=== PATIENT | female | born 1955 | race Caucasian/White ===

== ENCOUNTER 2017-07-14 10:18 | Emergency (ER) | payer OTHER ==
[~2017-07-14] VITALS: Ht 165.1 cm; Wt 67.0 kg
[~2017-07-14 10:18] MED LIST: ADVAIR HF1 IN; ADVAIR HFA IN; ARIMIDEX1 MG PO; BACTROBAN2 % EX; ESGIC-PLUS PO; LOPID600 MG PO; MUPIROCIN2 % EX; NAPROSYN500 MG OR; NASONEX50 MCG/AC NAB; OMEPRAZOLE20 MG PO; OS-CAL 500500 M1 PO; PRAVACHOL40 MG PO; PRILOSEC20 MG PO; ROPINIROLE HCL1 MG PO; ROPINIROLE1 MG PO; SIMVASTATIN80 MG PO; SINGULAIR PO; TET/DIP TOX1 ML IM; VASOTEC10 MG PO; WOMEN'S ONE PO; ZOFRAN ODT4 MG PO; [UNRECOGNIZED DRUG - OTHER] NAB
[2017-07-14 12:08] LABS: HEMOGLOBIN 12.7 g/dl (12.0-16.0); IMMATURE GRANULOCYTES 0.3 % (0.0-1.0); MEAN CELL VOLUME 89.2 fL CALC (80.0-100.0); MEAN CORPUSCULAR HGB 29.8 pG CALC (26.0-32.0); MEAN CORPUSCULAR HGB CONC 33.4 g/L CALC (32.0-36.0); NEUT# 9.38 thou/uL (2.00-7.15); RED BLOOD COUNT 4.26 mill/uL (4.20-5.60); RED CELL DISTRI WIDTH 13.1 % (11.5-15.5)
[2017-07-14 12:18] LABS: ALBUMIN 4.5 g/dL (3.2-5.0); ALKALINE PHOSPHATASE 109 u/l (38-126); AMYLASE 55 u/l (30-110); ANION GAP 17 (6-22 (CALC)); BUN 10 mg/dL (7-17); BUN/CREATININE RATIO 18 (12-20 (CALC)); CARBON DIOXIDE 28 mmol/l (22-30); CHLORIDE 99 mmol/l (95-108); CREATININE 0.6 mg/dL (0.5-1.0); GFR > 60 ML/MIN (>=60 (CALC)); GFR FOR AFR.AMER. > 60 ML/MIN (>=60 (CALC)); GLUCOSE 94 mg/dL (65-105); LIPASE 141 u/l (23-300); POTASSIUM 3.7 mmol/l (3.5-5.1); SGOT/AST 24 u/l (14-36); SGPT/ALT 33 u/l (9-52); SODIUM 141 mmol/l (137-146); TOTAL PROTEIN 7.3 g/dL (6.3-8.2)
[2017-07-14 12:38] LABS: URINE BILIRUBIN - DIPSTICK NEGATIVE (NEGATIVE); URINE BLOOD DIPSTICK NEGATIVE (NEGATIVE); URINE COLOR YELLOW; URINE GLUCOSE - DIPSTICK NEGATIVE (NEGATIVE); URINE KETONE NEGATIVE (NEGATIVE); URINE LEUK ESTERASE TRACE (NEGATIVE); URINE NITRITE - DIPSTICK NEGATIVE (Negative); URINE PROTEIN - DIPSTICK NEGATIVE (NEG-TRACE); URINE SPECIFIC GRAVITY <=1.005; URINE UROBILINOGEN - DIPSTICK 0.2 E.U./dL (0.2)
[2017-07-14 12:41] LABS: URINE CLARITY CLEAR
[2017-07-14] MEDS ORDERED: BACTRIM DS1 TAB PO (13:04)
[2017-07-14] MEDS ORDERED: METRONIDAZOL500 MG PO (13:04)
[2017-07-14 14:00] VITALS: BP 138/80
== END 2017-07-14 14:27 | disposition home or self-care (01) | DRG 392 ==
LOC: ED 10:18
PROVIDERS: Emergency Medicine
DX: K57.32 Diverticulitis of large intestine without perforation or abscess without bleeding (principal); R10.32 Left lower quadrant pain; R11.0 Nausea

== ENCOUNTER 2017-12-28 11:41 | Emergency (ER) | payer OTHER ==
[~2017-12-28] VITALS: Ht 165.1 cm; Wt 68.0 kg
[~2017-12-28 11:41] MED LIST changes: +BACTRIM DS1 TAB PO; +METRONIDAZOL500 MG PO
[2017-12-28] MEDS ORDERED: AUGMENTIN875TAB PO (12:14)
[2017-12-28] MEDS ORDERED: MEDDOSEPAK PO (12:14)
[2017-12-28] MEDS ORDERED: BENADRYL25 M1 PO (12:14)
[2017-12-28 12:20] VITALS: BP 132/81
== END 2017-12-28 12:20 | disposition home or self-care (01) | DRG 605 ==
LOC: ED 11:41
DX: S61.230A Puncture wound without foreign body of right index finger without damage to nail, initial encounter (principal); I10 Essential (primary) hypertension; J45.909 Unspecified asthma, uncomplicated; Z85.3 Personal history of malignant neoplasm of breast; X58.XXXA Exposure to other specified factors, initial encounter; Y93.H2 Activity, gardening and landscaping; Y92.007 Garden or yard of unspecified non-institutional (private) residence as the place of occurrence of the external cause

== ENCOUNTER 2018-06-21 12:32 | Emergency (ER) | payer OTHER ==
[~2018-06-21] VITALS: Ht 165.1 cm; Wt 67.0 kg
[~2018-06-21 12:32] MED LIST changes: +AUGMENTIN875TAB PO; +BENADRYL25 M1 PO; +MEDDOSEPAK PO
[2018-06-21 13:13] LABS: URINE BILIRUBIN - DIPSTICK NEGATIVE (NEGATIVE); URINE BLOOD DIPSTICK NEGATIVE (NEGATIVE); URINE COLOR YELLOW; URINE GLUCOSE - DIPSTICK NEGATIVE (NEGATIVE); URINE KETONE NEGATIVE (NEGATIVE); URINE LEUK ESTERASE NEGATIVE (NEGATIVE); URINE NITRITE - DIPSTICK NEGATIVE (Negative); URINE PH 5.5 (4.5-8.0); URINE PROTEIN - DIPSTICK NEGATIVE (NEG-TRACE); URINE SPECIFIC GRAVITY <=1.005; URINE UROBILINOGEN - DIPSTICK 0.2 E.U./dL (0.2)
[2018-06-21 13:15] LABS: URINE CLARITY CLEAR
[2018-06-21 13:24] LABS: HEMATOCRIT 39.7 % (37.0-47.0); HEMOGLOBIN 13.7 g/dl (12.0-16.0); IMMATURE GRANULOCYTES 0.1 % (0.0-5.0); MEAN CELL VOLUME 85.2 fL CALC (80.0-100.0); MEAN CORPUSCULAR HGB 29.4 pG CALC (26.0-32.0); MEAN CORPUSCULAR HGB CONC 34.5 g/L CALC (32.0-36.0); NEUT# 4.62 thou/uL (2.00-7.15); RED BLOOD COUNT 4.66 mill/uL (4.20-5.60); RED CELL DISTRI WIDTH 12.9 % (11.5-15.5)
[2018-06-21 13:36] LABS: ALBUMIN 4.6 g/dL (3.2-5.0); ALKALINE PHOSPHATASE 111 u/l (38-126); ANION GAP 17 (6-22 (CALC)); BILIRUBIN, TOTAL 0.7 mg/dL (0.0-1.4); BUN 8 mg/dL (8-23); BUN/CREATININE RATIO 16 (12-20 (CALC)); CARBON DIOXIDE 26 mmol/l (22-30); CHLORIDE 98 mmol/l (95-108); CREATININE 0.5 mg/dL (0.5-1.0); GFR > 60 ML/MIN (>=60 (CALC)); GFR FOR AFR.AMER. > 60 ML/MIN (>=60 (CALC)); LIPASE 385 u/l (23-300); POTASSIUM 4.2 mmol/l (3.5-5.1); SGOT/AST 33 u/l (9-36); SODIUM 136 mmol/l (137-146); TOTAL PROTEIN 7.4 g/dL (6.3-8.2)
[2018-06-21] MEDS ORDERED: PEPCID20 MG PO (16:08)
[2018-06-21 16:22] VITALS: BP 126/62
== END 2018-06-21 16:30 | disposition home or self-care (01) | DRG 392 ==
LOC: ED 12:32
DX: K52.9 Noninfective gastroenteritis and colitis, unspecified (principal); I10 Essential (primary) hypertension; J45.909 Unspecified asthma, uncomplicated

== ENCOUNTER 2019-07-18 18:24 | Inpatient (IN) | payer BC ==
[~2019-07-18] VITALS: Ht 165.1 cm; Wt 68.0 kg
[~2019-07-18 18:24] MED LIST changes: +PEPCID20 MG PO
--- NOTE | 2019-07-18 18:25 | NUR ---
PT VOMITED UPON ARRIVAL TO ER. PT STATES IT HAS BEEN HAPPENING ANYTIME SHE EATS X 1 WEEK. PT DENIES ABDOMINAL PAIN. PT STATES SHE FEELS DEPRESSED AND DOESN'T WANT TO EAT. PER PT'S THEY ARE THE PRIMARY CARETAKERS FOR HIS MOTHER WHICH IS DIFFICULT.
--- NOTE | 2019-07-18 18:40 | NUR ---
PT STATES SHE CANT SLEEP, SHE HAS BEEN TOSSING AND TURNING ALL NIGHT FOR LAST WEEK, WORRYING ABOUT HER MOTHER IN LAW. STATES DOESNT FEEL LIKE EATING. NO IDEAS OF HARMING SELF OR ANYONE ELSE.
[2019-07-18 19:52] LABS: HEMATOCRIT 36.6 % (37.0-47.0); HEMOGLOBIN 13.4 g/dl (12.0-16.0); IMMATURE GRANULOCYTES 0.3 % (0.0-5.0); MEAN CELL VOLUME 77.9 fL CALC (80.0-100.0); MEAN CORPUSCULAR HGB 28.5 pG CALC (26.0-32.0); MEAN CORPUSCULAR HGB CONC 36.6 g/L CALC (32.0-36.0); NEUT# 7.05 thou/uL (2.00-7.15); RED BLOOD COUNT 4.7 mill/uL (4.20-5.60); RED CELL DISTRI WIDTH 12.3 % (11.5-15.5)
[2019-07-18 20:42] LABS: ALBUMIN 4.9 g/dL (3.2-5.0); ALKALINE PHOSPHATASE 143 u/l (38-126); AMYLASE 54 u/l (30-110); BUN 5 mg/dL (8-23); BUN/CREATININE RATIO 12 (12-20 (CALC)); CARBON DIOXIDE 28 mmol/l (22-30); CREATININE 0.4 mg/dL (0.5-1.0); GFR > 60 ML/MIN (>=60 (CALC)); GFR FOR AFR.AMER. > 60 ML/MIN (>=60 (CALC)); LIPASE 252 u/l (23-300); POTASSIUM 3.5 mmol/l (3.5-5.1); TOTAL PROTEIN 7.9 g/dL (6.3-8.2)
[2019-07-18 20:46] LABS: URINE BILIRUBIN - DIPSTICK NEGATIVE (NEGATIVE); URINE BLOOD DIPSTICK TRACE-INTACT (NEGATIVE); URINE COLOR YELLOW; URINE GLUCOSE - DIPSTICK NEGATIVE (NEGATIVE); URINE KETONE NEGATIVE (NEGATIVE); URINE NITRITE - DIPSTICK NEGATIVE (Negative); URINE PH 6.5 (4.5-8.0); URINE PROTEIN - DIPSTICK NEGATIVE (NEG-TRACE); URINE UROBILINOGEN - DIPSTICK 0.2 E.U./dL (0.2)
[2019-07-18 20:50] LABS: ANION GAP 22 (6-22 (CALC)); CHLORIDE 69 mmol/l (95-108); SGOT/AST 84 u/l (9-36)
[2019-07-18 20:58] LABS: URINE LEUK ESTERASE LARGE (NEGATIVE)
[2019-07-18 21:01] LABS: URINE BACTERIA FEW hpf; URINE SQUAMOUS EPITHELIAL CELL FEW EPI/hpf (0-FEW); URINE WBC TNTC WBC/hpf (0-5)
[2019-07-18 21:22] LABS: SODIUM 115 mmol/l (137-146)
--- NOTE | 2019-07-18 21:30 | NUR ---
[facility] TO MED/SURG
--- NOTE | 2019-07-18 22:13 | NUR ---
PT UP TO BR WITH ASSIST..GAIT UNSTEADY.
--- NOTE | 2019-07-18 22:20 | NUR ---
ASSUMED CARE WHILE WAITING FOR FLOOR TO CALL BACK WITH REPORT. REPORT TO [facility]. [facility] WILL TRANSPORT TO FLOOR.
--- NOTE | 2019-07-18 22:37 | NUR ---
PT ARRIVED TO THE FLOOR VIA WHEELCHAIR, ACCOMPANIED BY ED STAFF, AND . PT ALERT AND ORIENTED, PT X1 ASSIST TO THE BED. RESPIRATIONS EVEN AND UNLABORED ON RA. VS OBTAINED AND ASSESSMENT COMPLETED AT THIS TIME. LUNGS SOUND CLEAR. PEDAL PULSES STRONG. PT DENIES ANY PAIN OR DISCOMFORT AT THIS TIME. SKIN IS INTACT. #20 LAC PATENT AND APPEARS HEALTHY. TELE IN PLACE. PT ORIENTED TO ROOM AND CALL FUNES SYSTEM. PT PROVIDED WITH APPLE JUICE PER REQUEST. CALL FUNES WITHIN REACH. WILL CONTINUE TO MONITOR.
[2019-07-18 23:07] VITALS: BP 126/74
--- NOTE | 2019-07-19 00:55 | NUR ---
PT RESTING IN BED. TELE IN PLACE. NO S/S OF DISTRESS AT THIS TIME. WILL CONTINEU TO MONITOR.
--- NOTE | 2019-07-19 03:38 | NUR ---
PT RESTING IN BED. RESPIRATIONS EVEN AND UNLABORED ON RA. TELE IN PLACE. CALL FUNES WITHIN REACH. WILL CONTINUE TO MONITOR.
[2019-07-19 04:56] VITALS: BP 117/67
--- NOTE | 2019-07-19 07:10 | NUR ---
REPORT RECEIVED FROM CHILO BEASLEY;PT APPEARS TO BE SLEEPING IN LEFT SIDE LAYING POSITION;NO S/S OF DISTRESS NOTED;RESPIRATIONS APPEAR EVEN AND UNLABORED ON RA;TELE MONITORING IN PLACE;IV FLUIDS INFUSING WITH EASE PER ORDER;FALL PRECAUTIONS NOTED WITH BED IN THE LOWEST POSITION AND CALL LIGHT IN REACH;WILL CONTINUE TO MONITOR
[2019-07-19 08:26] LABS: BUN 4 mg/dL (8-23); BUN/CREATININE RATIO 9 (12-20 (CALC)); CARBON DIOXIDE 27 mmol/l (22-30); CREATININE 0.5 mg/dL (0.5-1.0); GFR > 60 ML/MIN (>=60 (CALC)); GFR FOR AFR.AMER. > 60 ML/MIN (>=60 (CALC)); POTASSIUM 3.4 mmol/l (3.5-5.1)
[2019-07-19 08:32] LABS: ANION GAP 13 (6-22 (CALC)); CHLORIDE 88 mmol/l (95-108); SODIUM 125 mmol/l (137-146)
[2019-07-19 08:45] VITALS: BP 110/56
--- NOTE | 2019-07-19 08:45 | NUR ---
PT RESTING IN SEMI FOWLERS POSITION,A&O X4;VS OBTAINED AND ASSESSMENT COMPLETED;PT REPORTS HEADACHE PAIN AND REQUESTS PAIN MEDICATION, PT EDUCATED ON PAIN MEDICATION ADMINISTRATION AND THAT TYLENOL WAS GIVEN @ 0530 AND IT IS TO SOON FOR ANOTHER DOSE, PT VERBALIZES UNDERSTANDING;COOL CLOTH PROVIDED BUT PT REFUSES;RESPIRATIONS EVEN AND UNLABORED ON RA,CLEAR LUNG SOUNDS;ABDOMEN SOFT ON PALPATION AND ACTIVE IN ALL 4 QUADRANTS;STRONG PEDAL PULSES;SKIN INTACT;TELE MONITORING IN PLACE;#20G TO LAC INFUSING NS @ 100ML/HR,SITE APPEARS HEALTHY;LIMB ALERT NOTED TO RIGHT HAND;MOM WITH PRUNE JUICE PROVIDED FOR CONSTIPATION;PT DENIES ANY ADDITIONAL NEEDS AND IS ENCOURAGED TO CALL FOR ASSISTANCE IF NEEDED;FALL PRECAUTIONS IN PLACE WITH CALL LIGHT IN REACH;WILL CONTINUE TO MONITOR
--- NOTE | 2019-07-19 10:00 | NUR ---
PT RESTING IN BED WITH SPOUSE AT BEDSIDE;PT REPORTS NAUSEA AND REQUESTS MEDICATION;PT MEDICATED WITH PRN ZOFRAN 4MG IVP AT THIS TIME;PT DENIES ANY ADDITIONAL NEEDS;WILL CONTINUE TO MONITOR FOR EFFECTIVENESS
[2019-07-19 10:57] VITALS: BP 111/66
--- NOTE | 2019-07-19 11:14 | NUR ---
SOCO MARIANO,ANRP AT BEDSIDE DISCUSSING POC WITH PATIENT.
[2019-07-19 11:45] LABS: MAGNESIUM 1.8 mg/dL (1.6-2.3)
--- NOTE | 2019-07-19 12:10 | NUR ---
PT RESTING IN SEMI FOWLERS POSITION WITH SPOUSE AT BEDSIDE;RESPIRATIONS EVEN AND UNLABORED ON RA;PT REPORTS HEADACHE PAIN RATING 7/10 ON THE PAIN SCALE AND REQUESTS PAIN MEDICATION, PT MEDICATED WITH PRN TYLENOL 650MG PO;IV ABX STARTED AT THIS TIME;TELE MONITORING IN PLACE;PT DENIES ANY ADDITIONAL NEEDS AND IS ENCOURAGED TO CALL FOR ASSISTANCE IF NEEDED;CALL LIGHT IN REACH;WILL CONTINUE TO MONITOR
--- NOTE | 2019-07-19 12:41 | NUR ---
AT BEDSIDE DISCUSSING POC WITH PT AND SPOUSE.
[2019-07-19 15:47] LABS: ANION GAP 12 (6-22 (CALC)); BUN 5 mg/dL (8-23); BUN/CREATININE RATIO 10 (12-20 (CALC)); CARBON DIOXIDE 28 mmol/l (22-30); CHLORIDE 93 mmol/l (95-108); CREATININE 0.5 mg/dL (0.5-1.0); GFR > 60 ML/MIN (>=60 (CALC)); GFR FOR AFR.AMER. > 60 ML/MIN (>=60 (CALC)); POTASSIUM 3.7 mmol/l (3.5-5.1); SODIUM 129 mmol/l (137-146)
--- NOTE | 2019-07-19 16:05 | NUR ---
PT RESTING IN SEMI FOWLERS POSITION WITH SPOUSE AT BEDSIDE;RESPIRATIONS EVEN AND UNLABORED ON RA;PT DENIES ANY CURRENT PAIN OR DISCOMFORTS;PT REPORTS LARGE/BROWN LOOSE BM AND 400CC OF CLEAR/YELLOW URINE;TELE MONITORING IN PLACE;IV FLUIDS CONTINUE TO INFUSE TO LAC WITH EASE;PT DENIES ANY ADDITIONAL NEEDS AND IS ENCOURAGED TO CALL FOR ASSISTANCE IF NEEDED;CALL LIGHT IN REACH;WILL CONTINUE TO MONITOR
[2019-07-19 16:13] VITALS: BP 116/55
--- NOTE | 2019-07-19 19:10 | NUR ---
RECEIVED REPORT FROM NURSE BHATT, PATIENT RESTING IN BED WATCHING TV, NO DISCOMFORTS NOTED AT THIS TIME, CALL LIGHT AT REACH.
[2019-07-19 19:35] VITALS: BP 116/58
--- NOTE | 2019-07-19 20:00 | NUR ---
PATIENT SITTING IN BED WATCHING TV, ALERT AND ORIENTED ABLE TO MAKE NEEDS KNOWN, WITH AN ONGOING IV OF NORMAL SALINE @ 50CC/HR INFUSING WELL ON LAC, REMAINS ON TELE SR 87, PATIENTS STATED MUCH BETTER TODAY, WILL CONTINUE TO MONITOR, CALL LIGHT AT REACH.
[2019-07-20 00:12] VITALS: BP 129/60
--- NOTE | 2019-07-20 01:13 | NUR ---
APPEARS TO BE SLEEPING WITH EYES CLOSED EVEN UNLABORED BREATHING CALL LIGHT AT REACH.
--- NOTE | 2019-07-20 04:24 | NUR ---
PATIENT RESTING IN BED EYES CLOSED, EVEN UNLABORED BREATHING CALL LIGHT AT REACH.
[2019-07-20 05:11] VITALS: BP 122/61
[2019-07-20 05:30] LABS: HEMATOCRIT 33.3 % (37.0-47.0); HEMOGLOBIN 11.6 g/dl (12.0-16.0); IMMATURE GRANULOCYTES 0.2 % (0.0-5.0); MEAN CELL VOLUME 81.6 fL CALC (80.0-100.0); MEAN CORPUSCULAR HGB 28.4 pG CALC (26.0-32.0); MEAN CORPUSCULAR HGB CONC 34.8 g/L CALC (32.0-36.0); NEUT# 2.67 thou/uL (2.00-7.15); RED BLOOD COUNT 4.08 mill/uL (4.20-5.60); RED CELL DISTRI WIDTH 12.8 % (11.5-15.5)
[2019-07-20 05:41] LABS: ALKALINE PHOSPHATASE 97 u/l (38-126); ANION GAP 14 (6-22 (CALC)); BUN 4 mg/dL (8-23); BUN/CREATININE RATIO 10 (12-20 (CALC)); CARBON DIOXIDE 27 mmol/l (22-30); CHLORIDE 96 mmol/l (95-108); CREATININE 0.4 mg/dL (0.5-1.0); GFR > 60 ML/MIN (>=60 (CALC)); GFR FOR AFR.AMER. > 60 ML/MIN (>=60 (CALC)); POTASSIUM 3.5 mmol/l (3.5-5.1); SGOT/AST 47 u/l (9-36); SODIUM 133 mmol/l (137-146)
--- NOTE | 2019-07-20 07:20 | NUR ---
REPORT RECEIVED FROM CHILO CHINCHILLA;PT RESING IN SEMI FOWLERS POSITION;RESPIRATIONS EVEN AND UNLABORED ON RA;PT DENIES ANY CURRENT PAIN OR NEEDS;TELE MONITORING IN PLACE;IV FLUIDS INFUSING WITH EASE PER ORDER;PT ENCOURAGED TO CALL FOR ASSISTANCE IF NEEDED;FALL PRECAUTIONS IN PLACE WITH CALL LIGHT IN REACH;WILL CONTINUE TO MONITOR
--- NOTE | 2019-07-20 08:40 | NUR ---
PT RESTING IN SEMI FOWLERS POSITION,A&O X3;VS OBTAINED AND ASSESSMENT COMPLETED;PT DENIES ANY CURRENT PAIN,PAIN SCALE AND REPORTING EDUCATED;PT DOES REPORT INCREASING ANXIETY.ENVIORMENTAL CHANGES PROVIDED I.E SHOWER,OPENING OF BLINDS, APPLE JUICE, AND EXPRESSING NEEDS/CONCERNS;ENVIORMENTAL CHANGES AFFECTIVE;RESPIRATIONS EVEN AND UNLABORED ON RA,CLEAR LUNG SOUNDS;ABDOMEN SOFT ON PALPATION AND ACTIVE IN ALL 4 QUADRANTS;STRONG PEDAL PULSES;SKIN INTACT;TELE MONITORING IN PLACE;#20G TO LAC INFUSING D5 1/2 NS @ 75ML/HR,SITE APPEARS HEALTHY;PT DENIES ANY ADDITIONAL NEEDS AT THIS TIME AND IS ENCOURAGED TO CALL FOR ASSISTANCE IF NEEDED;CALL LIGHT IN REACH;WILL CONTINUE TO MONITOR
[2019-07-20 08:41] VITALS: BP 166/84
[2019-07-20 10:49] VITALS: BP 130/78
--- NOTE | 2019-07-20 10:58 | NUR ---
AT BEDSIDE DISCUSSING POC WITH PT AND SPOUSE.
--- NOTE | 2019-07-20 11:50 | NUR ---
PT RESTING IN SEMI FOWLERS POSITION EATING LUNCH WITH SPOUSE AT BEDSIDE;RESPIRATIONS EVEN AND UNLABORED ON RA;PT DENIES ANY CURRENT PAIN OR DISCOMFORTS;TELE MONITORING IN PLACE;IV FLUIDS INFUSING TO LAC WITH EASE AND ABX HUNG AT THIS TIME;PT DENIES ANY ADDITIONAL NEEDS AND IS ENCOURAGED TO CALL FOR ASSISTANCE IF NEEDED;CALL LIGHT IN REACH;WILL CONTINUE TO MONITOR
--- NOTE | 2019-07-20 13:30 | NUR ---
PT RESTING IN SEMI FOWLERS POSITION REPORTING ANXIETY AND REQUESTING MEDICATION;PT TO BE MEDICATED WITH PRN XANAX 0.5MG PO AT THIS TIME;PT DENIES ANY ADDITIONAL NEEDS;ENCOURAGED TO CALL FOR ASSISTANCE IF NEEDED;CALL LIGHT IN REACH;WILL CONTINUE TO MONITOR
[2019-07-20] MEDS ORDERED: ENALAPR/HCTZ1 TAB PO (13:57)
[2019-07-20] MEDS ORDERED: SERTRALINE HCL50 MG PO (14:00)
[2019-07-20] MEDS ORDERED: ALPRAZOLAM0.25 MG PO (14:01)
[2019-07-20] MEDS ORDERED: METOCLOPRAMIDE H5 MG PO (14:02)
[2019-07-20] MEDS ORDERED: FLONASE AL50 MCG/ACT NAB (14:04)
[2019-07-20 15:33] VITALS: BP 148/86
--- NOTE | 2019-07-20 15:50 | NUR ---
PT RESTING IN SEMI FOWLERS POSITION;RESPIRATIONS EVEN AND UNLABORED ON RA;PT DENIES ANY CURRENT PAIN OR NEEDS;TELE MONITORING IN PLACE;IV FLUIDS INFUSING WITH EASE;PT ENCOURAGED TO CALL FOR ASSISTANCE IF NEEDED;CALL LIGHT IN REACH;WILL CONTINUE TO MONITOR
--- NOTE | 2019-07-21 04:00 | NUR ---
PATIENT APPEARS TO BE RESTING IN BED EYES CLOSED, EVEN UNLABORED BREATHING CALL LIGHT AT REACH.
[2019-07-21 05:20] VITALS: BP 161/91
[2019-07-21 07:32] LABS: ANION GAP 13 (6-22 (CALC)); BUN 3 mg/dL (8-23); BUN/CREATININE RATIO 8 (12-20 (CALC)); CARBON DIOXIDE 30 mmol/l (22-30); CHLORIDE 93 mmol/l (95-108); CREATININE 0.4 mg/dL (0.5-1.0); GFR > 60 ML/MIN (>=60 (CALC)); GFR FOR AFR.AMER. > 60 ML/MIN (>=60 (CALC)); POTASSIUM 3.3 mmol/l (3.5-5.1); SODIUM 133 mmol/l (137-146)
[2019-07-21 08:00] VITALS: BP 144/69
--- NOTE | 2019-07-21 08:00 | NUR ---
ASSESSMENT DONE. TELE IN PLACE. PT IS A&O X3. PT DENIES PAIN AT THIS TIME OR NEEDS. CALL LIGHT IN REACH.
[2019-07-21 10:37] VITALS: BP 144/72
[2019-07-21] MEDS ORDERED: KEFLEX500 MG PO (11:09)
--- NOTE | 2019-07-21 13:57 | NUR ---
Discharge instructions given. Patient verbalizes understanding of same. Discharged in stable condition via Wheelchair to Home with spouse. All belongings sent with pt.
== END 2019-07-21 13:56 | disposition home or self-care (01) | DRG 641 ==
LOC: ED 18:24 → ED-I 21:18 → ED 21:30 → MS2 21:31
PROVIDERS: Emergency Medicine; Nurse Practitioner Family; ADMIT Internal Medicine; ATTEND Internal Medicine
DX: E87.1 Hypo-osmolality and hyponatremia (principal); N39.0 Urinary tract infection, site not specified; E86.1 Hypovolemia; I10 Essential (primary) hypertension; F32.9 Major depressive disorder, single episode, unspecified; F41.9 Anxiety disorder, unspecified; J45.909 Unspecified asthma, uncomplicated; E78.5 Hyperlipidemia, unspecified; K21.9 Gastro-esophageal reflux disease without esophagitis; G25.81 Restless legs syndrome; B96.1 Klebsiella pneumoniae [K. pneumoniae] as the cause of diseases classified elsewhere; Z63.6 Dependent relative needing care at home; Z85.3 Personal history of malignant neoplasm of breast
CPT/HCPCS: J1650; J2060